=== PATIENT | male | born 1965 | race Caucasian/White ===

== ENCOUNTER 2018-12-22 09:40 | Emergency (ER) | payer OTHER ==
[~2018-12-22] VITALS: Ht 177.8 cm; Wt 83.9 kg
[~2018-12-22 09:40] MED LIST: CIPRO500 MG PO; LEVSIN0.125 MG PO
[2018-12-22] MEDS ORDERED: BENICAR20 MG (09:51)
== END 2018-12-22 12:05 | disposition home or self-care (01) ==
LOC: ER 09:40
DX: M77.8 Other enthesopathies, not elsewhere classified (principal); M79.672 Pain in left foot

== ENCOUNTER 2019-05-05 14:59 | Inpatient (IN) | payer OTHER ==
[~2019-05-05] VITALS: Ht 55.9 cm; Wt 5.0 kg
[~2019-05-05 14:59] MED LIST changes: +BENICAR20 MG PO
[2019-06-11] MEDS ORDERED: LIPITOR20 MG PO (12:35)
[2019-06-21] MEDS ORDERED: HYOSCYAMINE0.125 M1 SL (12:04)
[2019-06-21] MEDS ORDERED: INTESTINEX680 M1 PO (12:05)
[2019-06-21] MEDS ORDERED: OXYC1TAB9 PO (12:05)
[2019-06-21] MEDS ORDERED: DICLOFENAC SODI75 MG PO (12:05)
== END 2019-06-21 13:05 | disposition home or self-care (01) | DRG 331 ==
LOC: O/R 06-18 06:57 → SURG 06-18 11:00
PROVIDERS: ADMIT Colon & Rectal Surgery
PROC: 0DJD8ZZ Inspection of Lower Intestinal Tract, Via Natural or Artificial Opening Endoscopic (ICD-10-PCS; 2019-06-18)
PROC: 4A033R1 Measurement of Arterial Saturation, Peripheral, Percutaneous Approach (ICD-10-PCS; 2019-06-18)
PROC: 4A12X4Z Monitoring of Cardiac Electrical Activity, External Approach (ICD-10-PCS; 2019-06-18)
PROC: 0DTN4ZZ Resection of Sigmoid Colon, Percutaneous Endoscopic Approach (ICD-10-PCS; principal; 2019-06-18 21:15)
DX: K57.32 Diverticulitis of large intestine without perforation or abscess without bleeding (principal); I11.9 Hypertensive heart disease without heart failure; G47.33 Obstructive sleep apnea (adult) (pediatric); F17.290 Nicotine dependence, other tobacco product, uncomplicated

== ENCOUNTER → 2019-06-04 17:05 | Outpatient (CLI) | payer OTHER ==
[~2019-06-04 17:05] MED LIST changes: +BENICAR20 MG; -BENICAR20 MG PO
== END | disposition home or self-care (01) ==
LOC: LAB 17:05
DX: K57.20 Diverticulitis of large intestine with perforation and abscess without bleeding (principal); K92.1 Melena

== ENCOUNTER 2020-07-16 11:53 | Day surgery (SDC) | payer OTHER ==
[~2020-07-16 11:53] MED LIST changes: -BENICAR20 MG; +BENICAR20 MG PO; +DICLOFENAC SODI75 MG PO; +HYOSCYAMINE0.125 M1 SL; +INTESTINEX680 M1 PO; +LIPITOR20 MG PO; +OXYC1TAB9 PO
== END 2020-07-16 16:00 | disposition home or self-care (01) ==
LOC: AMB-ENDOS 11:53
PROVIDERS: ATTEND Colon & Rectal Surgery
DX: K57.32 Diverticulitis of large intestine without perforation or abscess without bleeding (principal); K64.2 Third degree hemorrhoids; Z20.822 Contact with and (suspected) exposure to COVID-19

== ENCOUNTER 2022-02-08 06:00 | Day surgery (SDC) | payer OTHER | END 2022-02-08 13:00 | disposition home or self-care (01) | LOC: CIR.AMB 06:00 | PROVIDERS: ATTEND Surgery Surgery of the Hand | DX: M67.843 Other specified disorders of tendon, right hand (principal); M65.231 Calcific tendinitis, right forearm; Z20.822 Contact with and (suspected) exposure to COVID-19; F17.210 Nicotine dependence, cigarettes, uncomplicated; I10 Essential (primary) hypertension; Z86.16 Personal history of COVID-19 ==

== ENCOUNTER 2025-04-16 13:44 | Outpatient (CLI) | payer OTHER | END 2025-04-16 13:47 | disposition home or self-care (01) | LOC: RAD 13:44 | PROVIDERS: ATTEND Orthopaedic Surgery | DX: M25.562 Pain in left knee (principal) ==